=== PATIENT | female | born 1985 | race Two or more races ===

== ENCOUNTER 2020-08-31 10:02 | Emergency (ER) | payer MEDICAID, OTHER ==
[~2020-08-31] VITALS: Ht 170.2 cm; Wt 67.4 kg
--- NOTE | 2020-08-31 10:30 | NUR ---
PT PRESENS TO ED WITH C/O GENERALIZED FATIGUE AND RUNNY NOSE SINCE 1ST DOSE OF COVID VACCINE ON 08/29. PT A&O, RESPS EVEN AND UNLABORED, NADN.
[2020-08-31] MEDS ORDERED: MORPHINE SULFATE 4 MG/ML, 1ML ONE (11:08)
[2020-08-31] MEDS ORDERED: ONDANSETRON 2MG/ML, 2ML ONE (11:08)
[2020-08-31 11:28] LABS: BASOPHILS % (AUTO) 1 % (0-1); EOSINOPHILS % (AUTO) 0 % (1-7); LYMPHOCYTES % (AUTO) 22 % (22-44); MEAN CORPUSCULAR HEMOGLOBIN 30.8 pg (27.0-34.8); MONOCYTES % (AUTO) 4 % (2-9); NEUTROPHILS % (AUTO) 73 % (42-75); PLATELET COUNT 303 x10^3/uL (130-400); RED BLOOD COUNT 4.78 x10^6/uL (3.82-5.3); RED CELL DISTRIBUTION WIDTH 13.9 % (9.6-15.2)
[2020-08-31 11:29] LABS: MD NO
[2020-08-31] MEDS ORDERED: MORPHINE SULFATE 4 MG/ML, 1ML IVPush PRN (11:30)
[2020-08-31] MEDS ORDERED: SODIUM CHLORIDE FLUSH 10ML SYR IVF ONE (11:30)
[2020-08-31] MEDS ORDERED: ONDANSETRON 2MG/ML, 2ML IVPush ONE (11:30)
[2020-08-31] MEDS ORDERED: SODIUM CHLORIDE 0.9% 1,000ML IVBOLUS ONE (11:30)
[2020-08-31 11:41] LABS: ALBUMIN 4.1 g/dL (3.4-5.0); ANION GAP 7 mmol/L (5-15); CHLORIDE 112 mmol/L (98-107); CREATININE 0.69 mg/dL (0.55-1.02)
--- NOTE | 2020-08-31 11:46 | NUR ---
PT C/O LEG PAIN. ERMD AWARE, ORDERS RECIEVED.
--- NOTE | 2020-08-31 12:24 | NUR ---
PT RESTING IN BED, VSS, NADN. AWAITING IMAGING RESULTS.
[2020-08-31] MEDS ORDERED: POTASSIUM CHLORIDE 20 MEQ TAB.ER.PRT PO ONE (12:30)
[2020-08-31] MEDS ORDERED: POTASSIUM CHLORIDE 20 MEQ TAB.ER.PRT ONE (12:34)
[2020-08-31 13:54] VITALS: BP 104/64
--- NOTE | 2020-08-31 14:32 | NUR ---
DISCHARGE INSTRUCTIONS REVIEWED, PT VERBALIZED UNDERSTANDING. AMBULATORY TO DISCHARGE DESK W STEADY GAIT.
== END 2020-08-31 14:33 | disposition home or self-care (01) ==
LOC: ED 11:49
DX: M79.10 Myalgia, unspecified site (principal); R11.0 Nausea
CPT/HCPCS: 36415; 71045; 80048; 82040; 83605; 85025; 87040; 96361; 96374; 96375; 99284; J2270; J2405; J7030